=== PATIENT | female | born 1990 | race Caucasian/White ===

== ENCOUNTER 2016-07-22 01:50 | Emergency (ER) | payer OTHER ==
[~2016-07-22] VITALS: Ht 170.2 cm; Wt 61.9 kg
[~2016-07-22 01:50] MED LIST: BACTRIM,SEPT1 TABLET PO; BENADRYL ITCH118 ML TP; COLACE100 MG PO; DEPAKOTE250 MG PO; DEPO-PROVE150 MG/1 M IM; HYDROCODON-ACE1 EAC7 PO; INDOCIN25 MG PO; LEXAPRO20 MG PO; MAGIC MOUTHWASH1 ML MM; METRONIDAZOLE500 MG PO; PREDNISONE20 MG PO; ROBITUSSIN AC,T10 ML PO; TESSALON PERLE100 MG PO; TORADOL10 MG PO; ULTRAM50 MG PO; VENTOLIN HFA18 GM IH; VITAMIN D31000 UNIT PO; VITAMIN D5000 UNIT PO
[2016-07-22 03:30] LABS: HEMATOCRIT 38.3 % (36.0-46.0); MCH 33.2 PG (29.0-34.0); MCHC 34.5 G/DL (30.0-36.0); MCV 96.2 FL (83-99); MEAN PLAT.VOLUME 11.4 uM^3 (9.5-12.4); PLATELET COUNT 261 K/uL (156-360); RBC DIS.WIDTH-CV 12.7 % (11.8-14.6); RED BLOOD COUNT 3.98 M/uL (3.80-5.20); WHITE BLOOD COUNT 10.3 K/uL (4.1-10.2)
[2016-07-22 03:43] LABS: BASOPHIL COUNT 0.1 K/uL (0-0.1); EOSINOPHIL (%) 9.6 % (0-5); IMMATURE GRANULOCYTE (%) 0.2 % (0.0-0.7); IMMATURE GRANULOCYTE COUNT 0.2 K/uL; LYMPHOCYTE COUNT 3.2 K/uL (1.0-2.8); MONOCYTE (%) 8.8 % (3-12); MONOCYTE COUNT 0.9 K/uL (0-0.8); NEUTROPHIL (%) 49.8 % (45-76); NEUTROPHIL COUNT 5.1 K/uL (1.8-6.4)
[2016-07-22 03:45] LABS: CHLORIDE 107 mEq/L (99-109); POTASSIUM 4.1 mEq/L (3.7-5.4)
[2016-07-22 03:46] LABS: SODIUM 142 mEq/L (136-147)
[2016-07-22 03:48] LABS: GLUCOSE 106 mg/dL (70-99)
[2016-07-22 03:49] LABS: ANION GAP 10 MEQ/L (2-14)
[2016-07-22 03:50] LABS: TOTAL BILIRUBIN 0.2 mg/dL (0.0-1.0)
[2016-07-22 03:51] LABS: ALKALINE PHOSPHATASE 54 IU/L (3-129); GFR ESTIMATE (CALCULATED) > 59 mL/min/
[2016-07-22 03:53] LABS: UREA NITROGEN (BUN) 15 mg/dL (9-23)
[2016-07-22 04:00] LABS: QUANTITATIVE HCG < 4.0 MIU/ML
[2016-07-22] MEDS ORDERED: ANTIVERT25 MG PO (04:59)
[2016-07-22] MEDS ORDERED: ZOFRAN4 MG PO (04:59)
[2016-07-22 05:09] VITALS: BP 130/80
== END 2016-07-22 05:10 | disposition home or self-care (01) ==
LOC: EME 01:50
PROVIDERS: Emergency Medicine
DX: R42 Dizziness and giddiness (principal); R59.1 Generalized enlarged lymph nodes; F41.9 Anxiety disorder, unspecified; F32.9 Major depressive disorder, single episode, unspecified; R11.0 Nausea; F17.200 Nicotine dependence, unspecified, uncomplicated
CPT/HCPCS: 70486; 80053; 84702; 85025; 99281; 99284

== ENCOUNTER 2016-08-13 16:25 | Emergency (ER) | payer OTHER ==
[~2016-08-13] VITALS: Ht 170.2 cm; Wt 59.0 kg
[~2016-08-13 16:25] MED LIST changes: +ANTIVERT25 MG PO; +ZOFRAN4 MG PO
[2016-08-13] MEDS ORDERED: FIORICET 50-301 EACH PO (18:15)
[2016-08-13] MEDS ORDERED: MOTRIN800 MG PO (18:15)
[2016-08-13] MEDS ORDERED: VALIUM2 MG PO (18:15)
[2016-08-13 18:26] VITALS: BP 128/71
== END 2016-08-13 18:27 | disposition home or self-care (01) ==
LOC: EME 16:25
DX: S06.0X0A Concussion without loss of consciousness, initial encounter (principal); S29.011A Strain of muscle and tendon of front wall of thorax, initial encounter; S09.90XA Unspecified injury of head, initial encounter; S16.1XXA Strain of muscle, fascia and tendon at neck level, initial encounter; V43.52XA Car driver injured in collision with other type car in traffic accident, initial encounter; Y92.488 Other paved roadways as the place of occurrence of the external cause; F17.200 Nicotine dependence, unspecified, uncomplicated
CPT/HCPCS: 70450; 72125; 99281; 99285

== ENCOUNTER 2017-09-04 17:50 | Emergency (ER) | payer OTHER ==
[~2017-09-04] VITALS: Ht 167.6 cm; Wt 65.4 kg
[~2017-09-04 17:50] MED LIST changes: +FIORICET 50-301 EACH PO; +MOTRIN800 MG PO; +VALIUM2 MG PO
[2017-09-04 17:59] VITALS: BP 126/70
[2017-09-04 19:07] LABS: APPEARANCE TURBID ((CLEAR)); BILIRUBIN NEGATIVE; BLOOD NEGATIVE; COLOR YELLOW ((YELLOW)); GLUCOSE (STRIP) NEGATIVE; KETONES NEGATIVE; LEUKOCYTES NEGATIVE; NITRITE NEGATIVE; PROTEIN (STRIP) 30; SPECIFIC GRAVITY 1.023 (1.000-1.030); UROBILINOGEN 0.2 MG/DL (0.2-1.0)
[2017-09-04 19:22] LABS: AMORPHOUS PHOSPHATE CRYSTALS 3+; BACTERIA 2+ /HPF; EPITHELIAL CELLS RARE /HPF; MUCUS NONE SEEN /LPF; RED BLOOD CELLS NONE SEEN /HPF (0-5); UCUL ADDED? YES; WHITE BLOOD CELLS NONE SEEN /HPF (0-5)
== END 2017-09-04 21:06 | disposition left against medical advice (07) ==
LOC: EME 17:50
PROVIDERS: Physician Assistant
DX: M79.605 Pain in left leg (principal); F41.9 Anxiety disorder, unspecified; F32.9 Major depressive disorder, single episode, unspecified; F17.200 Nicotine dependence, unspecified, uncomplicated
CPT/HCPCS: 81003; 81025; 87086; 99281; 99283